=== PATIENT | male | born 1965 | race African-American/Black ===

== ENCOUNTER 2023-01-02 16:22 | Inpatient (IN) | payer MEDICAID, OTHER ==
[~2023-01-02] VITALS: Ht 188 cm; Wt 83.9 kg
[~2023-01-02 16:22] MED LIST: ATROPINE SULFATE 1MG/10ML SYR ONE; CALCIUM CHLORIDE 1GM/10ML SYR IV ONE; EPINEPHRINE 0.1MG/ML (1:10,000) 10ML SYR ONE; SODIUM BICARBONATE 8.4% 1 MEQ/ML 50ML SYR IV ONE
[2023-01-02 18:03] LABS: CHLORIDE 96 mEq/L (98-107)
[2023-01-02 18:11] LABS: MEAN CORPUSCULAR HEMOGLOBIN 30.6 pg (28.0-32.0); MEAN PLATELET VOLUME 8.3 fl (7.4-10.4); PLATELET 297 x1000/uL (130-400); RED BLOOD CELL COUNT 1.87 mill/uL (4.7-6.1); RED CELL DISTRIBUTION WIDTH 17.4 % (11.6-14.6)
[2023-01-02 18:14] LABS: HEMATOCRIT. 16.6 % (42.0-52.0); HEMOGLOBIN. 5.7 g/dL (14.0-18.0)
[2023-01-02] MEDS ORDERED: FUROSEMIDE 20MG/2ML VIAL IVP ONE (21:30)
[2023-01-02] MEDS ORDERED: CEFTRIAXONE 2GM/50ML (ADDEASE) 50 ML IV ONE (21:30)
[2023-01-02] MEDS ORDERED: AZITHROMYCIN 500MG/250ML 250 ML IV ONE (21:30)
[2023-01-02] MEDS ORDERED: FUROSEMIDE 40MG/4ML VIAL IVP NR (21:45)
[2023-01-02] MEDS ORDERED: CEFTRIAXONE 2 G in DEXTROSE 5% WATER 50 ML IV NR (22:00)
[2023-01-02] MEDS ORDERED: METOPROLOL TARTRATE 5MG/5ML VIAL IV SCH (23:00)
[2023-01-02] MEDS ORDERED: PROPOFOL 10MG/ML 100ML 100 ML IV ONE (23:30)
[2023-01-03] VITALS (91 sets, daily range): BP systolic 82–149; BP diastolic 51–95
[2023-01-03 00:07] LABS: ATYPICAL LYMPHOCYTES 2
[2023-01-03 00:08] LABS: PLATELET ESTIMATE NORMAL
[2023-01-03 00:11] LABS: BG BASE EXCESS -11.2 mmol/L (-2.0-2.0); BG CARBOXYHEMOGLOBIN 0.7 % (0.5-1.5); BG DEOXYHEMOGLOBIN 8.5 % (0.0-5.0); BG HCO3 ACT 15.7 mmol/L (22.0-26.0); BG METHEMOGLOBIN 0.6 % (0.0-1.5); BG OXYGEN SATURATION 91.4 % (92.0-98.5); BG OXYHEMOGLOBIN 90.2 % (94.0-97.0); BG PCO2 40.3 mmHg (35.0-45.0); BG PH 7.208 (7.350-7.450); BG PO2 81.1 mmHg (75.0-100.0); BG TOTAL HEMOGLOBIN 6.2 g/dL (12.0-18.0)
[2023-01-03] MEDS ORDERED: SODIUM CHLORIDE 0.9% 1,000 ML IV SCH (01:15)
[2023-01-03] MEDS ORDERED: ACETAMINOPHEN 650MG SUPP PR PRN ×2 (01:15)
[2023-01-03] MEDS ORDERED: FENTANYL 2500MCG/250ML PMX 250 ML IV PRN ×2 (01:30→02:30)
[2023-01-03] MEDS ORDERED: SODIUM CHLORIDE 0.9% 500 ML IV NR (01:30)
[2023-01-03] MEDS ORDERED: SODIUM BICARBONATE 8.4% 1 MEQ/ML 50ML SYR IV NR (01:30)
[2023-01-03] MEDS: DEXT 5%/0.9% NACL 1,000 ML IV SCH ×2 (04:49→18:10)
[2023-01-03] MEDS ORDERED: SODIUM CHLORIDE 0.9% INJ 3ML FLUSH IVF SCH (06:00)
[2023-01-03 07:37] LABS: MEAN CORPUSCULAR HEMOGLOBIN 29.4 pg (28.0-32.0); MEAN CORPUSCULAR VOLUME 89.9 fL (80.0-94.0); MEAN PLATELET VOLUME 7.8 fl (7.4-10.4); PLATELET 205 x1000/uL (130-400)
[2023-01-03 07:47] LABS: HEMATOCRIT. 19.8 % (42.0-52.0); HEMOGLOBIN. 6.5 g/dL (14.0-18.0)
[2023-01-03 07:58] LABS: INR 1.4; PROTHROMBIN TIME 14.6 sec (9.6-11.0)
[2023-01-03 08:16] LABS: D-DIMER > 35.20 mg/L FEU (<0.50)
[2023-01-03] MEDS: FAMOTIDINE 20MG/2ML VIAL IV SCH (08:26)
[2023-01-03 09:52] LABS: BG BASE EXCESS -1.2 mmol/L (-2.0-2.0); BG CARBOXYHEMOGLOBIN 0.8 % (0.5-1.5); BG FRACTION INSPIRED OXYGEN 50; BG HCO3 ACT 24.5 mmol/L (22.0-26.0); BG METHEMOGLOBIN 0.3 % (0.0-1.5); BG OXYHEMOGLOBIN 94.9 % (94.0-97.0); BG PCO2 45.9 mmHg (35.0-45.0); BG PH 7.345 (7.350-7.450); BG PO2 87.4 mmHg (75.0-100.0); BG SAMPLE SITE RIGHT RADIAL; BG TOTAL HEMOGLOBIN 7.4 g/dL (12.0-18.0); BG VENT MODE VENT - AC
[2023-01-03 10:24] LABS: PLATELET ESTIMATE NORMAL
[2023-01-03] MEDS ORDERED: SODIUM POLYSTYRENE SULFONATE 15 G/60 ML BOT NG NR (11:00)
[2023-01-03] MEDS ORDERED: VANCOMYCIN 1500MG in DEXTROSE 5% WATER 250ML IV SCH (11:00)
[2023-01-03 12:09] LABS: T4 FREE 0.79 ng/dL (0.76-1.46)
[2023-01-03] MEDS: PIPERACILLIN/TAZOBACTAM 3.375 G in DEXTROSE 5% WATER 50 ML IV SCH ×2 (14:56→21:18)
[2023-01-03 16:53] LABS: HEMATOCRIT 24.4 % (42.0-52.0); HEMOGLOBIN 7.8 g/dL (14.0-18.0)
[2023-01-03] MEDS: AZITHROMYCIN 500 MG in DEXT 5% WATER 250 ML IV SCH (21:18)
[2023-01-04] VITALS (77 sets, daily range): BP systolic 62–143; BP diastolic 26–91
[2023-01-04 04:40] LABS: HEMATOCRIT. 22.8 % (42.0-52.0); HEMOGLOBIN. 7.4 g/dL (14.0-18.0); MEAN CORPUSCULAR HEMOGLOBIN 29.2 pg (28.0-32.0); MEAN CORPUSCULAR VOLUME 90.3 fL (80.0-94.0); MEAN PLATELET VOLUME 8.9 fl (7.4-10.4); PLATELET 153 x1000/uL (130-400); RED BLOOD CELL COUNT 2.52 mill/uL (4.7-6.1); RED CELL DISTRIBUTION WIDTH 19.5 % (11.6-14.6)
[2023-01-04] MEDS ORDERED: PHENYLEPHRINE 100 MG in DEXT 5% WATER 240 ML IV PRN (05:15)
[2023-01-04] MEDS ORDERED: AMIODARONE HCL 150 MG in DEXT 5% WATER 97 ML IV NR (05:15)
[2023-01-04] MEDS ORDERED: AMIODARONE HCL 50MG/ML 9ML VIAL IV SCH (05:15)
[2023-01-04] MEDS: PIPERACILLIN/TAZOBACTAM 3.375 G in DEXTROSE 5% WATER 50 ML IV SCH ×2 (05:29→14:03)
[2023-01-04] MEDS ORDERED: VASOPRESSIN 20 UNIT in SODIUM CHLORIDE 0.9% 99 ML IV PRN (06:00)
[2023-01-04] MEDS: AMIODARONE HCL 900 MG in DEXT 5% WATER 500 ML IV PRN (06:03)
[2023-01-04] MEDS: DILTIAZEM HCL 125 MG in DEXTROSE 5% WATER 125 ML IV PRN (06:42)
[2023-01-04 06:48] LABS: PHOSPHORUS 4.7 mg/dL (2.5-4.9)
[2023-01-04 08:06] LABS: PLATELET ESTIMATE NORMAL
[2023-01-04] MEDS: VASOPRESSIN 20 UNIT in SODIUM CHLORIDE 0.9% 99 ML IV PRN (08:44)
[2023-01-04 08:49] LABS: BG BASE EXCESS -4.9 mmol/L (-2.0-2.0); BG CARBOXYHEMOGLOBIN 0.5 % (0.5-1.5); BG DEOXYHEMOGLOBIN 0.6 % (0.0-5.0); BG FRACTION INSPIRED OXYGEN 50; BG HCO3 ACT 21.1 mmol/L (22.0-26.0); BG OXYGEN SATURATION 99.4 % (92.0-98.5); BG OXYHEMOGLOBIN 98.9 % (94.0-97.0); BG PCO2 42.9 mmHg (35.0-45.0); BG PH 7.309 (7.350-7.450); BG SAMPLE SITE RIGHT BRACHIAL; BG TOTAL HEMOGLOBIN 8.1 g/dL (12.0-18.0); BG VENT MODE VENT - AC
[2023-01-04] MEDS ORDERED: DIGOXIN 500MCG/2ML AMP IV NR (09:00)
[2023-01-04] MEDS ORDERED: LIDOCAINE HCL 1% 10 MG/ML 10ML VIAL ONE (09:40)
[2023-01-04] MEDS ORDERED: DOPAMINE 400MG/250ML PREMIX 250 ML IV ONE (09:45)
[2023-01-04] MEDS ORDERED: SODIUM CHLORIDE 0.9% 250 ML IV ONE (09:45)
[2023-01-04] MEDS ORDERED: DOPAMINE 400MG/250ML PREMIX 250 ML IV PRN (10:00)
[2023-01-04] MEDS ORDERED: DOPAMINE 400MG/250ML PREMIX 250 ML IV SCH (10:00)
[2023-01-04] MEDS: FAMOTIDINE 20MG/2ML VIAL IV SCH ×2 (10:08→14:04)
[2023-01-04] MEDS ORDERED: SODIUM CHLORIDE 0.9% 500 ML IV ONE (11:00)
[2023-01-04] MEDS ORDERED: ALBUMIN HUMAN 25GM/100ML (25%) IV NR (11:00)
[2023-01-04] MEDS ORDERED: VANCOMYCIN 1G PREMIX 200 ML IV SCH (11:00)
[2023-01-04] MEDS: AZITHROMYCIN 500 MG in DEXT 5% WATER 250 ML IV SCH (14:03)
[2023-01-04] MEDS: HYDROCORTISONE SOD SUCCINATE 100 MG/2 ML VIAL IV SCH ×2 (14:04→22:38)
[2023-01-04] MEDS: DEXT 5%/0.9% NACL 1,000 ML IV SCH ×2 (14:04→22:38)
[2023-01-04] MEDS ORDERED: DIGOXIN 500MCG/2ML AMP IV PRN (15:00)
[2023-01-04] MEDS ORDERED: DIGOXIN 500MCG/2ML AMP IV SCH (15:45)
[2023-01-04] MEDS: MEROPENEM 1,000 MG in SODIUM CHLORIDE 0.9% 100 ML IV SCH (17:12)
[2023-01-04 17:32] LABS: VITAMIN B12 SERUM 1852 pg/mL (211-911)
[2023-01-04 23:33] LABS: FERRITIN > 1650 ng/mL (22-322)
[2023-01-05] VITALS (91 sets, daily range): BP systolic 87–125; BP diastolic 31–78
[2023-01-05] MEDS: MEROPENEM 1,000 MG in SODIUM CHLORIDE 0.9% 100 ML IV SCH ×3 (00:59→21:25)
[2023-01-05 05:02] LABS: HEMATOCRIT. 25.4 % (42.0-52.0); HEMOGLOBIN. 7.6 g/dL (14.0-18.0); MEAN CORPUSCULAR HEMOGLOBIN 28.5 pg (28.0-32.0); MEAN CORPUSCULAR VOLUME 94.6 fL (80.0-94.0); PLATELET 152 x1000/uL (130-400); RED BLOOD CELL COUNT 2.69 mill/uL (4.7-6.1); RED CELL DISTRIBUTION WIDTH 20.8 % (11.6-14.6)
[2023-01-05 05:34] LABS: DIGOXIN 1.4 ng/mL (0.9-2.0)
[2023-01-05] MEDS: AMIODARONE HCL 900 MG in DEXT 5% WATER 500 ML IV PRN (05:52)
[2023-01-05] MEDS: HYDROCORTISONE SOD SUCCINATE 100 MG/2 ML VIAL IV SCH ×2 (06:00→13:59)
[2023-01-05] MEDS: VASOPRESSIN 20 UNIT in SODIUM CHLORIDE 0.9% 99 ML IV PRN ×2 (06:25→17:25)
[2023-01-05] MEDS: DILTIAZEM HCL 125 MG in DEXTROSE 5% WATER 125 ML IV PRN ×2 (07:41→19:00)
[2023-01-05] MEDS: DEXT 5%/0.9% NACL 1,000 ML IV SCH ×2 (07:41→21:25)
[2023-01-05] MEDS: PHENYLEPHRINE 100 MG in DEXT 5% WATER 250 ML IV PRN ×2 (07:42→22:55)
[2023-01-05 08:28] LABS: BG BASE EXCESS -3.4 mmol/L (-2.0-2.0); BG CARBOXYHEMOGLOBIN 0.9 % (0.5-1.5); BG DEOXYHEMOGLOBIN 0.9 % (0.0-5.0); BG HCO3 ACT 22.8 mmol/L (22.0-26.0); BG METHEMOGLOBIN 0.5 % (0.0-1.5); BG OXYGEN SATURATION 99.1 % (92.0-98.5); BG OXYHEMOGLOBIN 97.7 % (94.0-97.0); BG PCO2 46.9 mmHg (35.0-45.0); BG PH 7.304 (7.350-7.450); BG PO2 153.8 mmHg (75.0-100.0); BG SAMPLE SITE RIGHT RADIAL; BG TOTAL HEMOGLOBIN 7.2 g/dL (12.0-18.0); BG VENT MODE VENT - AC
[2023-01-05 08:32] LABS: PLATELET ESTIMATE NORMAL
[2023-01-05] MEDS: FAMOTIDINE 20MG/2ML VIAL IV SCH (09:00)
[2023-01-05] MEDS ORDERED: VANCOMYCIN 1.25GM PMX (XELLIA) 250 ML IV NR (09:00)
[2023-01-05] MEDS ORDERED: BLOOD SUGAR DIAGNOSTIC STRIP TEST SCH (09:00)
[2023-01-05] MEDS ORDERED: ACETAMINOPHEN 650MG/20.3ML UDC PO PRN ×2 (09:30→15:15)
[2023-01-05] MEDS ORDERED: SODIUM CHLORIDE 0.9% 250 ML IV SCH (09:45)
[2023-01-05] MEDS: BLOOD SUGAR DIAGNOSTIC STRIP TEST SCH ×2 (11:30→17:06)
[2023-01-05] MEDS: INSULIN LISPRO 100 UNITS/ML SUBCUT SCH ×2 (11:31→17:07)
[2023-01-05] MEDS ORDERED: LIDOCAINE HCL 1% 30ML VIAL (10MG/ML) ONE (13:23)
[2023-01-05 14:51] LABS: HEPATITIS B SURFACE ANTIGEN NEGATIVE
[2023-01-05 18:18] LABS: BG BASE EXCESS 0.2 mmol/L (-2.0-2.0); BG CARBOXYHEMOGLOBIN 0.4 % (0.5-1.5); BG DEOXYHEMOGLOBIN 0.6 % (0.0-5.0); BG HCO3 ACT 24.2 mmol/L (22.0-26.0); BG METHEMOGLOBIN 0.1 % (0.0-1.5); BG OXYGEN SATURATION 99.4 % (92.0-98.5); BG OXYHEMOGLOBIN 98.9 % (94.0-97.0); BG PCO2 36.3 mmHg (35.0-45.0); BG PH 7.441 (7.350-7.450); BG PO2 198.2 mmHg (75.0-100.0); BG SAMPLE SITE RIGHT RADIAL; BG TOTAL HEMOGLOBIN 8.8 g/dL (12.0-18.0); BG VENT MODE VENT - AC
[2023-01-05] MEDS: AZITHROMYCIN 500 MG in DEXT 5% WATER 250 ML IV SCH (22:55)
[2023-01-06] VITALS (99 sets, daily range): BP systolic 90–120; BP diastolic 42–80
[2023-01-06] MEDS: DEXT 5%/0.9% NACL 1,000 ML IV SCH ×2 (02:57→13:06)
[2023-01-06 04:27] LABS: MEAN CORPUSCULAR HEMOGLOBIN 28.8 pg (28.0-32.0); MEAN CORPUSCULAR VOLUME 89.2 fL (80.0-94.0); PLATELET 117 x1000/uL (130-400); RED CELL DISTRIBUTION WIDTH 18.9 % (11.6-14.6)
[2023-01-06 04:37] LABS: CHLORIDE 96 mEq/L (98-107)
[2023-01-06 05:19] LABS: HEMATOCRIT. 20.5 % (42.0-52.0); HEMOGLOBIN. 6.6 g/dL (14.0-18.0)
[2023-01-06] MEDS: BLOOD SUGAR DIAGNOSTIC STRIP TEST SCH ×5 (05:50→23:32)
[2023-01-06] MEDS: INSULIN LISPRO 100 UNITS/ML SUBCUT SCH ×5 (05:53→23:32)
[2023-01-06 06:18] LABS: PLATELET ESTIMATE NORMAL
[2023-01-06] MEDS: FAMOTIDINE 20MG/2ML VIAL IV SCH (08:35)
[2023-01-06] MEDS: MEROPENEM 1,000 MG in SODIUM CHLORIDE 0.9% 100 ML IV SCH ×2 (08:35→21:22)
[2023-01-06] MEDS: DILTIAZEM HCL 125 MG in DEXTROSE 5% WATER 125 ML IV PRN ×2 (08:36→20:07)
[2023-01-06] MEDS: VASOPRESSIN 20 UNIT in SODIUM CHLORIDE 0.9% 99 ML IV PRN (08:37)
[2023-01-06 10:30] LABS: BG BASE EXCESS -0.7 mmol/L (-2.0-2.0); BG DEOXYHEMOGLOBIN 0.3 % (0.0-5.0); BG FRACTION INSPIRED OXYGEN 50; BG HCO3 ACT 23.6 mmol/L (22.0-26.0); BG METHEMOGLOBIN 0.5 % (0.0-1.5); BG OXYGEN SATURATION 99.7 % (92.0-98.5); BG OXYHEMOGLOBIN 98.2 % (94.0-97.0); BG PH 7.423 (7.350-7.450); BG PO2 190.8 mmHg (75.0-100.0); BG SAMPLE SITE RIGHT RADIAL; BG VENT MODE VENT - AC
[2023-01-06] MEDS: INSULIN GLARGINE 100 UNITS/ML SUBCUT SCH ×2 (10:59→21:24)
[2023-01-06] MEDS: AMIODARONE HCL 900 MG in DEXT 5% WATER 500 ML IV PRN (14:22)
[2023-01-06 21:33] LABS: BG BASE EXCESS -0.7 mmol/L (-2.0-2.0); BG CARBOXYHEMOGLOBIN 0.6 % (0.5-1.5); BG DEOXYHEMOGLOBIN 1.9 % (0.0-5.0); BG FRACTION INSPIRED OXYGEN 30; BG HCO3 ACT 23.2 mmol/L (22.0-26.0); BG METHEMOGLOBIN 0.1 % (0.0-1.5); BG OXYGEN SATURATION 98.1 % (92.0-98.5); BG OXYHEMOGLOBIN 97.4 % (94.0-97.0); BG PCO2 34.4 mmHg (35.0-45.0); BG PH 7.446 (7.350-7.450); BG PO2 106.8 mmHg (75.0-100.0); BG SAMPLE SITE RIGHT RADIAL; BG VENT MODE VENT - AC
[2023-01-06 22:39] LABS: MEAN CORPUSCULAR HEMOGLOBIN 28.5 pg (28.0-32.0); MEAN CORPUSCULAR VOLUME 89.5 fL (80.0-94.0); PLATELET 96 x1000/uL (130-400); RED BLOOD CELL COUNT 2.46 mill/uL (4.7-6.1)
[2023-01-07] VITALS (74 sets, daily range): BP systolic 85–118; BP diastolic 40–67
[2023-01-07] MEDS: DILTIAZEM HCL 125 MG in DEXTROSE 5% WATER 125 ML IV PRN ×3 (04:24→21:33)
[2023-01-07 04:40] LABS: HEMATOCRIT. 22.2 % (42.0-52.0); HEMOGLOBIN. 7.3 g/dL (14.0-18.0); MEAN CORPUSCULAR HEMOGLOBIN 28.8 pg (28.0-32.0); MEAN CORPUSCULAR VOLUME 87.9 fL (80.0-94.0); MEAN PLATELET VOLUME 8.8 fl (7.4-10.4); PLATELET 96 x1000/uL (130-400); RED BLOOD CELL COUNT 2.52 mill/uL (4.7-6.1); RED CELL DISTRIBUTION WIDTH 18.2 % (11.6-14.6)
[2023-01-07 04:48] LABS: CHLORIDE 98 mEq/L (98-107)
[2023-01-07 04:58] LABS: PHOSPHORUS 2.5 mg/dL (2.5-4.9)
[2023-01-07] MEDS: INSULIN LISPRO 100 UNITS/ML SUBCUT SCH ×3 (06:00→18:00)
[2023-01-07 06:27] LABS: PLATELET ESTIMATE DECREASED
[2023-01-07] MEDS: BLOOD SUGAR DIAGNOSTIC STRIP TEST SCH ×3 (06:32→18:10)
[2023-01-07 08:04] LABS: BG BASE EXCESS -1.5 mmol/L (-2.0-2.0); BG CARBOXYHEMOGLOBIN 0.6 % (0.5-1.5); BG DEOXYHEMOGLOBIN 2.6 % (0.0-5.0); BG HCO3 ACT 21.6 mmol/L (22.0-26.0); BG METHEMOGLOBIN 0.3 % (0.0-1.5); BG OXYGEN SATURATION 97.4 % (92.0-98.5); BG OXYHEMOGLOBIN 96.5 % (94.0-97.0); BG PCO2 30.1 mmHg (35.0-45.0); BG PH 7.474 (7.350-7.450); BG PO2 87.7 mmHg (75.0-100.0); BG SAMPLE SITE RIGHT RADIAL; BG TOTAL HEMOGLOBIN 8.2 g/dL (12.0-18.0); BG VENT MODE VENT - AC
[2023-01-07] MEDS ORDERED: CALCIUM GLUCONATE 1,000 MG in DEXT 5% WATER 90 ML IV SCH (09:00)
[2023-01-07] MEDS: MEROPENEM 1,000 MG in SODIUM CHLORIDE 0.9% 100 ML IV SCH ×2 (09:45→21:33)
[2023-01-07] MEDS: FAMOTIDINE 20MG/2ML VIAL IV SCH (09:45)
[2023-01-07] MEDS: INSULIN GLARGINE 100 UNITS/ML SUBCUT SCH ×2 (09:46→22:00)
[2023-01-07] MEDS: AMIODARONE HCL 900 MG in DEXT 5% WATER 500 ML IV PRN (21:33)
[2023-01-08] VITALS (98 sets, daily range): BP systolic 83–132; BP diastolic 37–84
[2023-01-08] MEDS: BLOOD SUGAR DIAGNOSTIC STRIP TEST SCH ×4 (00:11→17:10)
[2023-01-08 05:09] LABS: HEMATOCRIT. 22.8 % (42.0-52.0); HEMOGLOBIN. 7.5 g/dL (14.0-18.0); MEAN CORPUSCULAR HEMOGLOBIN 29.6 pg (28.0-32.0); MEAN CORPUSCULAR VOLUME 90.3 fL (80.0-94.0); MEAN PLATELET VOLUME 9.7 fl (7.4-10.4); PLATELET 97 x1000/uL (130-400); RED BLOOD CELL COUNT 2.53 mill/uL (4.7-6.1)
[2023-01-08] MEDS: DILTIAZEM HCL 125 MG in DEXTROSE 5% WATER 125 ML IV PRN ×3 (05:19→21:20)
[2023-01-08 05:20] LABS: CHLORIDE 98 mEq/L (98-107)
[2023-01-08] MEDS: INSULIN LISPRO 100 UNITS/ML SUBCUT SCH ×4 (06:00→17:11)
[2023-01-08] MEDS: MEROPENEM 1,000 MG in SODIUM CHLORIDE 0.9% 100 ML IV SCH ×3 (08:26→21:20)
[2023-01-08] MEDS: INSULIN GLARGINE 100 UNITS/ML SUBCUT SCH ×2 (09:13→10:00)
[2023-01-08] MEDS: FAMOTIDINE 20MG/2ML VIAL IV SCH (09:13)
[2023-01-08] MEDS: MULTIVITAMINS,THER W-MINERALS TABLET PO SCH (09:13)
[2023-01-08 09:14] LABS: BG BASE EXCESS -1.5 mmol/L (-2.0-2.0); BG CARBOXYHEMOGLOBIN 0.7 % (0.5-1.5); BG DEOXYHEMOGLOBIN 2.6 % (0.0-5.0); BG FRACTION INSPIRED OXYGEN 30; BG METHEMOGLOBIN 0.3 % (0.0-1.5); BG OXYGEN SATURATION 97.4 % (92.0-98.5); BG OXYHEMOGLOBIN 96.4 % (94.0-97.0); BG PCO2 31.7 mmHg (35.0-45.0); BG PH 7.459 (7.350-7.450); BG PO2 93.4 mmHg (75.0-100.0); BG SAMPLE SITE LEFT RADIAL; BG TOTAL HEMOGLOBIN 7.8 g/dL (12.0-18.0); BG VENT MODE VENT - AC
[2023-01-08 10:37] LABS: NUCLEATED RED BLOOD CELLS 2 /100 WBC
[2023-01-08 10:38] LABS: PLATELET ESTIMATE DECREASED
[2023-01-09] VITALS (96 sets, daily range): BP systolic 81–126; BP diastolic 34–69
[2023-01-09] MEDS: AMIODARONE HCL 900 MG in DEXT 5% WATER 500 ML IV PRN (04:37)
[2023-01-09 05:37] LABS: MEAN CORPUSCULAR HEMOGLOBIN 29.2 pg (28.0-32.0); MEAN CORPUSCULAR VOLUME 90.3 fL (80.0-94.0); PLATELET 100 x1000/uL (130-400); RED CELL DISTRIBUTION WIDTH 19.2 % (11.6-14.6)
[2023-01-09] MEDS: INSULIN LISPRO 100 UNITS/ML SUBCUT SCH ×5 (05:49→23:32)
[2023-01-09] MEDS: BLOOD SUGAR DIAGNOSTIC STRIP TEST SCH ×5 (05:49→23:32)
[2023-01-09 05:56] LABS: CHLORIDE 98 mEq/L (98-107)
[2023-01-09] MEDS ORDERED: AMIODARONE HCL 150 MG in DEXT 5% WATER 100 ML IV NR (06:00)
[2023-01-09 06:12] LABS: HEMATOCRIT. 21.6 % (42.0-52.0); PHOSPHORUS 3.1 mg/dL (2.5-4.9)
[2023-01-09 07:07] LABS: PLATELET ESTIMATE DECREASED
[2023-01-09 07:45] LABS: BG BASE EXCESS -2.4 mmol/L (-2.0-2.0); BG CARBOXYHEMOGLOBIN 1.3 % (0.5-1.5); BG DEOXYHEMOGLOBIN 2.4 % (0.0-5.0); BG HCO3 ACT 21.9 mmol/L (22.0-26.0); BG METHEMOGLOBIN 0.3 % (0.0-1.5); BG OXYGEN SATURATION 97.6 % (92.0-98.5); BG PCO2 34.9 mmHg (35.0-45.0); BG PH 7.415 (7.350-7.450); BG PO2 93.7 mmHg (75.0-100.0); BG SAMPLE SITE RIGHT RADIAL; BG TOTAL HEMOGLOBIN 7.6 g/dL (12.0-18.0); BG VENT MODE VENT - AC
[2023-01-09] MEDS: MEROPENEM 1,000 MG in SODIUM CHLORIDE 0.9% 100 ML IV SCH ×2 (09:20→21:18)
[2023-01-09] MEDS: MULTIVITAMINS,THER W-MINERALS TABLET PO SCH (09:21)
[2023-01-09] MEDS: INSULIN GLARGINE 100 UNITS/ML SUBCUT SCH (10:35)
[2023-01-09] MEDS: DILTIAZEM HCL 125 MG in DEXTROSE 5% WATER 125 ML IV PRN ×2 (11:11→19:46)
[2023-01-09] MEDS ORDERED: BISACODYL 10MG SUPP PR PRN (15:15)
[2023-01-09 15:46] LABS: HEMATOCRIT 21.9 % (42.0-52.0); HEMOGLOBIN 7.1 g/dL (14.0-18.0)
[2023-01-09] MEDS ORDERED: ACETAMINOPHEN 500MG TABLET PO PRN (17:45)
[2023-01-09] MEDS ORDERED: ACETAMINOPHEN 650MG/20.3ML UDC PO NR (20:45)
[2023-01-09] MEDS: SENNOSIDES 8.6MG TABLET NG SCH (21:19)
[2023-01-09] MEDS ORDERED: VANCOMYCIN 1500MG in DEXTROSE 5% WATER 250ML IV NR (22:30)
[2023-01-09] MEDS: PHENYLEPHRINE 100 MG in DEXT 5% WATER 250 ML IV PRN (23:05)
[2023-01-10] VITALS (101 sets, daily range): BP systolic 77–122; BP diastolic 25–68
[2023-01-10] MEDS: ONDANSETRON HCL 4MG/2ML INJ IV PRN ×2 (04:24→12:10)
[2023-01-10] MEDS: DILTIAZEM HCL 125 MG in DEXTROSE 5% WATER 125 ML IV PRN (04:27)
[2023-01-10] MEDS: INSULIN LISPRO 100 UNITS/ML SUBCUT SCH ×3 (06:00→17:17)
[2023-01-10] MEDS: BLOOD SUGAR DIAGNOSTIC STRIP TEST SCH ×3 (06:31→17:17)
[2023-01-10] MEDS: AMIODARONE HCL 900 MG in DEXT 5% WATER 500 ML IV PRN (07:02)
[2023-01-10 08:12] LABS: BG BASE EXCESS -2.7 mmol/L (-2.0-2.0); BG CARBOXYHEMOGLOBIN 0.6 % (0.5-1.5); BG DEOXYHEMOGLOBIN 9.4 % (0.0-5.0); BG HCO3 ACT 22.6 mmol/L (22.0-26.0); BG METHEMOGLOBIN 0.4 % (0.0-1.5); BG OXYGEN SATURATION 90.5 % (92.0-98.5); BG OXYHEMOGLOBIN 89.6 % (94.0-97.0); BG PCO2 41.1 mmHg (35.0-45.0); BG PH 7.358 (7.350-7.450); BG PO2 59.1 mmHg (75.0-100.0); BG SAMPLE SITE RIGHT RADIAL; BG TOTAL HEMOGLOBIN 8.3 g/dL (12.0-18.0); BG VENT MODE VENT - AC
[2023-01-10] MEDS: MULTIVITAMINS,THER W-MINERALS TABLET PO SCH (08:15)
[2023-01-10] MEDS: DOCUSATE SODIUM SUGAR FREE 100MG/10ML UDC NG SCH (08:15)
[2023-01-10] MEDS: MEROPENEM 1,000 MG in SODIUM CHLORIDE 0.9% 100 ML IV SCH (08:18)
[2023-01-10] MEDS: FAMOTIDINE 20MG/2ML VIAL IV SCH (08:18)
[2023-01-10] MEDS: INSULIN GLARGINE 100 UNITS/ML SUBCUT SCH (09:16)
[2023-01-10] MEDS: AMIODARONE HCL 900 MG in DEXT 5% WATER 482 ML IV SCH ×2 (09:16→23:09)
[2023-01-10 09:53] LABS: HEMATOCRIT. 22.8 % (42.0-52.0); HEMOGLOBIN. 7.6 g/dL (14.0-18.0); MEAN CORPUSCULAR HEMOGLOBIN 29.6 pg (28.0-32.0); MEAN CORPUSCULAR VOLUME 88.6 fL (80.0-94.0); MEAN PLATELET VOLUME 9.8 fl (7.4-10.4); PLATELET 83 x1000/uL (130-400); RED BLOOD CELL COUNT 2.58 mill/uL (4.7-6.1); RED CELL DISTRIBUTION WIDTH 17.6 % (11.6-14.6)
[2023-01-10 10:42] LABS: PLATELET ESTIMATE DECREASED
[2023-01-10] MEDS: METOCLOPRAMIDE HCL 10MG/2ML VIAL IV SCH ×2 (12:10→17:17)
[2023-01-10] MEDS ORDERED: DEXT 5%/0.9% NACL 1,000 ML IV ONE (12:30)
[2023-01-10] MEDS: DEXT 5%/0.9% NACL 1,000 ML IV SCH ×2 (13:01→23:20)
[2023-01-10] MEDS ORDERED: ZINC SULF/CUSO4 P-HYD/MANG/CR 10 ML VIAL IV ONE (15:45)
[2023-01-10] MEDS: MEROPENEM 500 MG in SODIUM CHLORIDE 0.9% 50 ML IV SCH (17:16)
[2023-01-10] MEDS ORDERED: [UNRECOGNIZED DRUG - REMARK] IV NR ×2 (18:00)
[2023-01-10] MEDS: DEXTROSE 50% WATER 50ML SYRINGE IV PRN (18:10)
[2023-01-10] MEDS: SENNOSIDES 8.6MG TABLET NG SCH (21:50)
[2023-01-11] VITALS (100 sets, daily range): BP systolic 82–151; BP diastolic 33–139
[2023-01-11] MEDS: DEXTROSE 50% WATER 50ML SYRINGE IV PRN (00:22)
[2023-01-11] MEDS: METOCLOPRAMIDE HCL 10MG/2ML VIAL IV SCH ×4 (00:22→18:50)
[2023-01-11 05:04] LABS: HEMATOCRIT. 23.2 % (42.0-52.0); HEMOGLOBIN. 7.7 g/dL (14.0-18.0); MEAN CORPUSCULAR VOLUME 87.7 fL (80.0-94.0); MEAN PLATELET VOLUME 10.1 fl (7.4-10.4); PLATELET 92 x1000/uL (130-400); RED BLOOD CELL COUNT 2.64 mill/uL (4.7-6.1); RED CELL DISTRIBUTION WIDTH 18.3 % (11.6-14.6)
[2023-01-11] MEDS: INSULIN LISPRO 100 UNITS/ML SUBCUT SCH ×4 (06:00→18:00)
[2023-01-11] MEDS: BLOOD SUGAR DIAGNOSTIC STRIP TEST SCH ×4 (06:00→18:50)
[2023-01-11] MEDS: PHENYLEPHRINE 100 MG in DEXT 5% WATER 250 ML IV PRN (06:09)
[2023-01-11 08:42] LABS: NUCLEATED RED BLOOD CELLS 1 /100 WBC
[2023-01-11 08:43] LABS: PLATELET ESTIMATE DECREASED
[2023-01-11 08:54] LABS: BG BASE EXCESS 0.6 mmol/L (-2.0-2.0); BG CARBOXYHEMOGLOBIN 0.3 % (0.5-1.5); BG DEOXYHEMOGLOBIN 1.9 % (0.0-5.0); BG FRACTION INSPIRED OXYGEN 30; BG HCO3 ACT 23.8 mmol/L (22.0-26.0); BG METHEMOGLOBIN 0.4 % (0.0-1.5); BG OXYGEN SATURATION 98.1 % (92.0-98.5); BG OXYHEMOGLOBIN 97.4 % (94.0-97.0); BG PCO2 32.3 mmHg (35.0-45.0); BG PH 7.486 (7.350-7.450); BG PO2 103.3 mmHg (75.0-100.0); BG SAMPLE SITE RIGHT RADIAL; BG TOTAL HEMOGLOBIN 8.2 g/dL (12.0-18.0); BG VENT MODE VENT - AC
[2023-01-11] MEDS: MULTIVITAMINS,THER W-MINERALS TABLET PO SCH (09:25)
[2023-01-11] MEDS: DOCUSATE SODIUM SUGAR FREE 100MG/10ML UDC NG SCH (09:25)
[2023-01-11] MEDS ORDERED: CALCIUM GLUCONATE 1GM PREMIX 50 ML IV NR (10:00)
[2023-01-11] MEDS: AMIODARONE HCL 900 MG in DEXT 5% WATER 482 ML IV SCH (15:09)
[2023-01-11] MEDS: MEROPENEM 500 MG in SODIUM CHLORIDE 0.9% 50 ML IV SCH (18:47)
[2023-01-11] MEDS: DILTIAZEM HCL 60MG TABLET NG SCH (18:50)
[2023-01-11 19:44] LABS: BG BASE EXCESS -0.7 mmol/L (-2.0-2.0); BG CARBOXYHEMOGLOBIN 0.5 % (0.5-1.5); BG DEOXYHEMOGLOBIN 2.5 % (0.0-5.0); BG FRACTION INSPIRED OXYGEN 30; BG HCO3 ACT 23.1 mmol/L (22.0-26.0); BG METHEMOGLOBIN 0.4 % (0.0-1.5); BG OXYGEN SATURATION 97.5 % (92.0-98.5); BG OXYHEMOGLOBIN 96.6 % (94.0-97.0); BG PCO2 34.1 mmHg (35.0-45.0); BG PH 7.448 (7.350-7.450); BG PO2 100.9 mmHg (75.0-100.0); BG SAMPLE SITE RIGHT RADIAL; BG VENT MODE VENT - SIMV
[2023-01-11] MEDS: AMIODARONE HCL 200 MG TABLET NG SCH (20:53)
[2023-01-11] MEDS: SENNOSIDES 8.6MG TABLET NG SCH (20:53)
[2023-01-11] MEDS ORDERED: PHENYLEPHRINE 100 MG in DEXT 5% WATER 240 ML IV PRN (23:00)
[2023-01-11] MEDS ORDERED: GUAIFENESIN-DM 200MG-20MG/10ML UDC PO PRN (23:30)
[2023-01-12] VITALS (88 sets, daily range): BP systolic 84–116; BP diastolic 44–65
[2023-01-12] MEDS: METOCLOPRAMIDE HCL 10MG/2ML VIAL IV SCH ×4 (00:50→17:04)
[2023-01-12] MEDS: DILTIAZEM HCL 60MG TABLET NG SCH ×5 (00:50→23:13)
[2023-01-12] MEDS: PHENYLEPHRINE 100 MG in DEXT 5% WATER 250 ML IV PRN (00:53)
[2023-01-12 05:11] LABS: HEMATOCRIT. 21.8 % (42.0-52.0); HEMOGLOBIN. 7.2 g/dL (14.0-18.0); MEAN CORPUSCULAR HEMOGLOBIN 29.4 pg (28.0-32.0); MEAN CORPUSCULAR VOLUME 88.9 fL (80.0-94.0); MEAN PLATELET VOLUME 10.2 fl (7.4-10.4); PLATELET 90 x1000/uL (130-400); RED BLOOD CELL COUNT 2.45 mill/uL (4.7-6.1); RED CELL DISTRIBUTION WIDTH 18.1 % (11.6-14.6)
[2023-01-12 05:38] LABS: PHOSPHORUS 5.2 mg/dL (2.5-4.9)
[2023-01-12] MEDS: INSULIN LISPRO 100 UNITS/ML SUBCUT SCH ×4 (05:50→17:05)
[2023-01-12] MEDS: BLOOD SUGAR DIAGNOSTIC STRIP TEST SCH ×4 (05:50→17:05)
[2023-01-12 07:55] LABS: PLATELET ESTIMATE DECREASED
[2023-01-12 08:06] LABS: BG BASE EXCESS 0.1 mmol/L (-2.0-2.0); BG CARBOXYHEMOGLOBIN 0.9 % (0.5-1.5); BG DEOXYHEMOGLOBIN 4.1 % (0.0-5.0); BG HCO3 ACT 23.8 mmol/L (22.0-26.0); BG METHEMOGLOBIN 0.2 % (0.0-1.5); BG OXYGEN SATURATION 95.9 % (92.0-98.5); BG OXYHEMOGLOBIN 94.8 % (94.0-97.0); BG PCO2 34.2 mmHg (35.0-45.0); BG SAMPLE SITE RIGHT RADIAL; BG TOTAL HEMOGLOBIN 7.5 g/dL (12.0-18.0); BG VENT MODE VENT - SIMV
[2023-01-12] MEDS: AMIODARONE HCL 200 MG TABLET NG SCH ×2 (08:38→21:17)
[2023-01-12] MEDS: MULTIVITAMINS,THER W-MINERALS TABLET PO SCH (08:38)
[2023-01-12] MEDS: FAMOTIDINE 20MG/2ML VIAL IV SCH (08:38)
[2023-01-12] MEDS: DOCUSATE SODIUM SUGAR FREE 100MG/10ML UDC NG SCH (08:39)
[2023-01-12] MEDS: MIDODRINE HCL 5MG TABLET NG SCH ×2 (09:39→17:05)
[2023-01-12] MEDS ORDERED: PREDNISOLONE BOTHEYE PRN ×2 (14:45→15:09)
[2023-01-12] MEDS ORDERED: SULFACETAMIDE BOTHEYE PRN ×2 (14:45→15:09)
[2023-01-12] MEDS: MEROPENEM 500 MG in SODIUM CHLORIDE 0.9% 50 ML IV SCH (17:05)
[2023-01-12] MEDS ORDERED: VANCOMYCIN 750MG PREMIX 150 ML IV NR (21:00)
[2023-01-12] MEDS ORDERED: EPOETIN ALFA-EPBX 4,000 UNIT/ML VIAL SUBCUT SCH (21:00)
[2023-01-12] MEDS: SENNOSIDES 8.6MG TABLET NG SCH (21:17)
[2023-01-13] MEDS ORDERED: CALCIUM GLUCONATE 1GM PREMIX 50 ML IV SCH (09:00)
== END 2023-01-13 00:08 | disposition short-term general hospital (02) | DRG 720 ==
LOC: ER 16:22 → EDBEDREQ 21:36 → EDBEDREQTM 21:36 → MICUSO 23:17 → EDBEDREQSVC 23:22
PROVIDERS: ADMIT Internal Medicine; ATTEND Internal Medicine
PROC: 5A12012 Performance of Cardiac Output, Single, Manual (ICD-10-PCS; principal; 2023-01-02)
PROC: 5A1955Z Respiratory Ventilation, Greater than 96 Consecutive Hours (ICD-10-PCS; 2023-01-02)
PROC: 0BH17EZ Insertion of Endotracheal Airway into Trachea, Via Natural or Artificial Opening (ICD-10-PCS; 2023-01-02)
PROC: 30233N1 Transfusion of Nonautologous Red Blood Cells into Peripheral Vein, Percutaneous Approach (ICD-10-PCS; 2023-01-03)
PROC: 02HV33Z Insertion of Infusion Device into Superior Vena Cava, Percutaneous Approach (ICD-10-PCS; 2023-01-04)
PROC: B548ZZA Ultrasonography of Superior Vena Cava, Guidance (ICD-10-PCS; 2023-01-04)
PROC: 02HV33Z Insertion of Infusion Device into Superior Vena Cava, Percutaneous Approach (ICD-10-PCS; 2023-01-05)
PROC: B548ZZA Ultrasonography of Superior Vena Cava, Guidance (ICD-10-PCS; 2023-01-05)
PROC: 4A00X4Z Measurement of Central Nervous Electrical Activity, External Approach (ICD-10-PCS; 2023-01-06)
DX: A41.9 Sepsis, unspecified organism (principal); J96.01 Acute respiratory failure with hypoxia; I46.2 Cardiac arrest due to underlying cardiac condition; N17.0 Acute kidney failure with tubular necrosis; R65.21 Severe sepsis with septic shock; R64 Cachexia; E43 Unspecified severe protein-calorie malnutrition; E87.1 Hypo-osmolality and hyponatremia; D63.1 Anemia in chronic kidney disease; I96 Gangrene, not elsewhere classified; J18.9 Pneumonia, unspecified organism; I21.4 Non-ST elevation (NSTEMI) myocardial infarction; N18.9 Chronic kidney disease, unspecified; I48.0 Paroxysmal atrial fibrillation; I42.0 Dilated cardiomyopathy; I31.39 Other pericardial effusion (noninflammatory); G93.1 Anoxic brain damage, not elsewhere classified; E87.5 Hyperkalemia; I48.92 Unspecified atrial flutter; K76.0 Fatty (change of) liver, not elsewhere classified; E88.09 Other disorders of plasma-protein metabolism, not elsewhere classified; I50.20 Unspecified systolic (congestive) heart failure; Z91.199 Patient's noncompliance with other medical treatment and regimen due to unspecified reason; Z74.01 Bed confinement status; Z82.49 Family history of ischemic heart disease and other diseases of the circulatory system; Z92.21 Personal history of antineoplastic chemotherapy; Z92.3 Personal history of irradiation; Z68.23 Body mass index [BMI] 23.0-23.9, adult
CPT/HCPCS: 31500; 36415; 36556; 36573; 36600; 71045; 74018; 74176; 76700; 76770; 76937; 78580; 80048; 80053; 80076; 80162; 80202; 82105; 82140; 82330; 82375; 82378; 82550; 82607; 82728; 82746; 82805; 82962; 82977; 83036; 83540; 83550; 83605; 83615; 83735; 83880; 84100; 84145; 84439; 84443; 84478; 84484; 85014; 85018; 85025; 85027; 85044; 85379; 85384; 85651; 86301; 86705; 86709; 86803; 86850; 86870; 86900; 86920; 87070; 87077; 87186; 87340; 87426; 90935; 93005; 93306; 93970; 94003; 94660; 95816; 99291; A6261; C1725; C1752; C1893; J0282; J0456; J0461; J0610; J0696; J0885; J1160; J1265; J1720; J1815; J1940; J2185; J2370; J2405; J2543; J2704; J2765; J3010; J3370; J3490; J7040; J7042; J7050; J7060; P9016; P9047